=== PATIENT | male | born 1955 | race Caucasian/White ===

== ENCOUNTER 2019-07-06 10:19 | Inpatient (IN) | payer OTHER ==
[~2019-07-06] VITALS: Ht 170.2 cm; Wt 69.7 kg
[~2019-07-06 10:19] MED LIST: PRED20TA PO; SIMV40TA20 PO
[2019-07-06] MEDS ORDERED: PLEASE ENTER HEIGHT AND WEIGHT MC SCH (11:00)
[2019-07-06 11:07] VITALS: BP 136/92
[2019-07-06] MEDS ORDERED: BUDE10.2 INH (11:23)
[2019-07-06] MEDS ORDERED: MONT10TA11 PO (11:23)
[2019-07-06] MEDS ORDERED: LOSA50TA14 PO (11:23)
[2019-07-06] MEDS ORDERED: ASPI81TA45 PO (11:23)
[2019-07-06 11:52] LABS: BASOPHILS # (AUTO) 0.03 x10^3/uL (0-0.1); BASOPHILS % (AUTO) 0 % (0-1); EOSINOPHILS # (AUTO) 0.68 x10^3/uL (0-0.4); EOSINOPHILS % (AUTO) 11 % (1-7); LYMPHOCYTES # (AUTO) 1.69 x10^3/uL (1-3.4); LYMPHOCYTES % (AUTO) 26 % (22-44); MD NO; MEAN CORPUSCULAR HEMOGLOBIN 30.4 pg (27.5-34.5); MEAN CORPUSCULAR HGB CONC 33.6 g/dL (33.2-36.2); MEAN CORPUSCULAR VOLUME 90.6 fL (81-97); MEAN PLATELET VOLUME 8.5 fL (7.4-10.4); MONOCYTES # (AUTO) 0.71 x10^3/uL (0.2-0.8); MONOCYTES % (AUTO) 11 % (2-9); NEUTROPHILS # (AUTO) 3.31 x10^3/uL (1.8-6.8); NEUTROPHILS % (AUTO) 52 % (42-75); PLATELET COUNT 248 x10^3/uL (130-400); RED BLOOD COUNT 4.82 x10^6/uL (4.38-5.82); RED CELL DISTRIBUTION WIDTH 14.1 % (9.4-14.8)
[2019-07-06 11:58] LABS: ALANINE AMINOTRANSFERASE 15 U/L (12-78); ANION GAP 7 mmol/L (5-15); CALCIUM 8.8 mg/dL (8.5-10.1); CHLORIDE 108 mmol/L (98-107); CREATININE 1.06 mg/dL (0.7-1.3)
[2019-07-06 12:02] LABS: ALKALINE PHOSPHATASE 51 U/L (45-117); BILIRUBIN,TOTAL 0.5 mg/dL (0.2-1.0); TOTAL PROTEIN 7.3 g/dL (6.4-8.2)
[2019-07-06 13:10] VITALS: BP 134/85
[2019-07-06 18:30] LABS: TROPONIN I 0.103 ng/mL (0.000-0.045)
[2019-07-06 20:23] VITALS: BP 135/78
[2019-07-06] MEDS: SIMVASTATIN 40 MG TABLET PO SCH (21:25)
[2019-07-06] MEDS: LOSARTAN 50MG TABLET PO SCH (21:25)
[2019-07-06] MEDS: ASPIRIN 81 MG TABLET CHEW PO SCH (21:25)
[2019-07-06] MEDS: MONTELUKAST 10 MG TABLET PO SCH (21:25)
[2019-07-07 00:50] VITALS: BP 118/72
[2019-07-07 06:48] VITALS: BP 127/80
[2019-07-07] MEDS ORDERED: NITROGLYCERIN 0.4 MG BOTTLE (25 TABS) SL ONE (06:52)
[2019-07-07] MEDS ORDERED: NITROGLYCERIN 0.4 MG BOTTLE (25 TABS) SL PRN (07:00)
[2019-07-07] MEDS ORDERED: SODIUM CHLORIDE 0.9% 1,000 ML IV SCH (07:00)
[2019-07-07 07:04] VITALS: BP 134/84
[2019-07-07 07:07] VITALS: BP 109/69
[2019-07-07] MEDS: SYMBICORT HOMEINH SCH (08:28)
[2019-07-07 12:53] VITALS: BP 125/76
[2019-07-07] MEDS ORDERED: BIVALIRUDIN 250 MG ONE (14:08)
[2019-07-07] MEDS ORDERED: FENTANYL PF 100 MCG/2ML ONE (14:08)
[2019-07-07] MEDS ORDERED: MIDAZOLAM 1 MG/ML, 2ML ONE ×2 (14:08→14:57)
[2019-07-07] MEDS ORDERED: LIDOCAINE-MPF 1%, 5ML ONE (14:08)
[2019-07-07] MEDS ORDERED: VERAPAMIL 2.5 MG/ML, 2ML ONE (14:09)
[2019-07-07] MEDS ORDERED: HEPARIN 1,000 UNITS/ML, 10ML ONE (14:09)
[2019-07-07] MEDS ORDERED: BIVALIRUDIN 250 MG in SODIUM CHLORIDE 0.9% 50 ML IV SCH (15:28)
[2019-07-07] MEDS ORDERED: PRASUGREL 10 MG TABLET ONE (15:34)
[2019-07-07 20:19] VITALS: BP 128/78
[2019-07-07] MEDS: MONTELUKAST 10 MG TABLET PO SCH (20:26)
[2019-07-07] MEDS: ASPIRIN 81 MG TABLET CHEW PO SCH (20:26)
[2019-07-07] MEDS: SIMVASTATIN 40 MG TABLET PO SCH (20:26)
[2019-07-07] MEDS: LOSARTAN 50MG TABLET PO SCH (20:26)
[2019-07-08 02:37] VITALS: BP 121/82
[2019-07-08 05:43] LABS: ANION GAP 6 mmol/L (5-15); CALCIUM 8.5 mg/dL (8.5-10.1); CHLORIDE 110 mmol/L (98-107)
[2019-07-08 05:44] LABS: CREATININE 0.95 mg/dL (0.7-1.3)
[2019-07-08] MEDS: SYMBICORT HOMEINH SCH (07:42)
[2019-07-08] MEDS ORDERED: PRAS10TA4 PO (08:20)
[2019-07-08 08:21] VITALS: BP 130/84
[2019-07-08] MEDS ORDERED: PRASUGREL 10 MG TABLET PO SCH (09:00)
== END 2019-07-08 09:56 | disposition home or self-care (01) | DRG 247 ==
LOC: 5SO 10:35 → DCLOUNGE 07-08 09:49
PROVIDERS: ADMIT Internal Medicine Cardiovascular Disease; ATTEND Internal Medicine Cardiovascular Disease
PROC: 027136Z Dilation of Coronary Artery, Two Arteries with Three Drug-eluting Intraluminal Devices, Percutaneous Approach (ICD-10-PCS; principal; 2019-07-07)
PROC: 4A023N7 Measurement of Cardiac Sampling and Pressure, Left Heart, Percutaneous Approach (ICD-10-PCS; 2019-07-07)
PROC: B211YZZ Fluoroscopy of Multiple Coronary Arteries using Other Contrast (ICD-10-PCS; 2019-07-07)
PROC: B215YZZ Fluoroscopy of Left Heart using Other Contrast (ICD-10-PCS; 2019-07-07)
DX: I25.110 Atherosclerotic heart disease of native coronary artery with unstable angina pectoris (principal); I10 Essential (primary) hypertension; E78.2 Mixed hyperlipidemia; J45.909 Unspecified asthma, uncomplicated; Z79.82 Long term (current) use of aspirin; Z79.899 Other long term (current) drug therapy; Z79.51 Long term (current) use of inhaled steroids; Z82.49 Family history of ischemic heart disease and other diseases of the circulatory system; Z87.891 Personal history of nicotine dependence
CPT/HCPCS: 36415; 93458; C9600; 71046; 80048; 80053; 84484; 85025; 93005; 93306; 93356; 99156; 99157; C1769; C1894; G0378; J0583; J1644; J2250; J3010; C1725; C1874; C1887; J7030; Q9967